=== PATIENT | female | born 2000 | race Caucasian/White ===

== ENCOUNTER 2019-05-06 22:04 | Emergency (ER) | payer OTHER ==
[~2019-05-06] VITALS: Ht 167 cm; Wt 84.6 kg
[2019-05-06 22:23] VITALS: BP_SYST 132; BP_SYST 139; BP_SYST 142; BP_DIAS 87; BP_DIAS 89; BP_DIAS 95
[2019-05-06 22:40] LABS: BASOPHILS % (AUTO) 0 % (0-10); EOSINOPHILS # (AUTO) 0.1 10^3/uL (0.0-0.3); EOSINOPHILS % (AUTO) 1 % (0-10); HEMATOCRIT 40 % (35-52); HEMOGLOBIN 13.1 G/DL (11.5-16.0); LYMPHOCYTES # (AUTO) 2.9 X 10^3 (1.0-4.0); LYMPHOCYTES % (AUTO) 27 % (12-44); MEAN CORPUSCULAR HEMOGLOBIN 30 PG (25-34); MEAN CORPUSCULAR HGB CONC 33 G/DL (32-36); MEAN CORPUSCULAR VOLUME 90 FL (80-99); MONOCYTES # (AUTO) 0.6 X 10^3 (0.0-1.0); MONOCYTES % (AUTO) 6 % (0-12); NEUTROPHILS # (AUTO) 7.2 X 10^3 (1.8-7.8); NEUTROPHILS % (AUTO) 67 % (42-75); PLATELET COUNT 229 10^3/uL (130-400); RED CELL DISTRIBUTION WIDTH 12.9 % (10.0-14.5); WHITE BLOOD COUNT 10.8 10^3/uL (4.3-11.0)
[2019-05-06] MEDS ORDERED: LACTATED RINGERS 1,000 ML IV ONE ×2 (22:41→23:10)
[2019-05-06] MEDS ORDERED: ONDANSETRON 4 MG/2 ML (SDV) Z0FRAN IVP ONE (22:45)
[2019-05-06 22:57] LABS: ALANINE AMINOTRANSFERASE 12 U/L (0-55); ALBUMIN 4.4 GM/DL (3.2-4.5); ALKALINE PHOSPHATASE 76 U/L (40-136); AMYLASE 61 U/L (25-125); BILIRUBIN,TOTAL 0.2 MG/DL (0.1-1.0); BUN/CREATININE RATIO 10; CALCIUM 9.2 MG/DL (8.5-10.1); CARBON DIOXIDE 23 MMOL/L (21-32); CHLORIDE 107 MMOL/L (98-107); CREATININE SERUM 0.79 MG/DL (0.60-1.30); GFR ESTIMATED > 60; GLUCOSE 104 MG/DL (70-105); LIPASE 42 U/L (8-78); MAGNESIUM 1.9 MG/DL (1.6-2.4); POTASSIUM 3.6 MMOL/L (3.6-5.0); SODIUM 143 MMOL/L (135-145); TOTAL PROTEIN 7.4 GM/DL (6.4-8.2)
[2019-05-06 23:22] LABS: BILIRUBIN,URINE NEGATIVE (NEGATIVE); CLARITY,URINE CLEAR; COLOR,URINE YELLOW; GLUCOSE, URINE (UA) NEGATIVE (NEGATIVE); KETONES,URINE NEGATIVE (NEGATIVE); LEUKOCYTE ESTERASE ,URINE NEGATIVE (NEGATIVE); NITRITE,URINE NEGATIVE (NEGATIVE); PROTEIN,URINE NEGATIVE (NEGATIVE)
[2019-05-06] MEDS ORDERED: IOHEXOL 350 MG/ML 100 ML (OMNIPAQUE 350) VIAL IV ONE (23:30)
[2019-05-06] MEDS ORDERED: HOLD METFORMIN - RECEIVED CONTRAST 20 ML VIAL IV SCH (23:30)
[2019-05-06] MEDS ORDERED: NS 100 ML (IVPB) BAG IV ONE (23:30)
[2019-05-06 23:33] LABS: AMPHETAMINE SCREEN, URINE NEGATIVE (NEGATIVE); BARBITURATE SCREEN URINE NEGATIVE (NEGATIVE); BENZODIAZEPINES SCREEN URINE NEGATIVE (NEGATIVE); CANNABINOID SCREEN, URINE NEGATIVE (NEGATIVE); COCAINE SCREEN URINE NEGATIVE (NEGATIVE); METHADONE STAT NEGATIVE (NEGATIVE); METHAMPHETAMINE SCREEN URINE S NEGATIVE (NEGATIVE); OPIATE SCREEN URINE NEGATIVE (NEGATIVE); OXYCODONE STAT NEGATIVE (NEGATIVE); PROPOXYPHENE STAT NEGATIVE (NEGATIVE); TRICYCLIC ANTIDEPRESSANTS SCRE NEGATIVE (NEGATIVE)
[2019-05-06 23:35] LABS: RBC,URINE RARE /HPF
[2019-05-06 23:36] LABS: AMORPHOUS SEDIMENT,UR MOD AMOR URATES /LPF; BACTERIA,URINE TRACE /HPF
--- NOTE | 2019-05-06 23:41 | NUR ---
PT TO CT DEPT VIA W/C
[2019-05-07] MEDS ORDERED: PANT40TA2 PO (01:14)
[2019-05-07] MEDS ORDERED: HYOS0.1283 SL (01:14)
[2019-05-07] MEDS ORDERED: ONDA8TAB13 PO (01:14)
[2019-05-07] MEDS ORDERED: LACT1CAP8 PO (01:14)
--- NOTE | 2019-05-07 01:14 | ED Abdominal Pain ---
General Chief Complaint: Abdominal/GI Problems Stated Complaint: VOMITTING, DIARRHEA, HEADACHE Nursing Triage Note: PT PRESENTS TO ROOM [facility] AMBULATORY C/O LOOSE STOOLS AND NAUSEA THAT HAS BEEN ONGOING FOR THE LAST TWO DAYS, PT STATES SHE BECAME DIZZY INTEMITTENTLY THIS AFTERNOON. PT STATES SHE HAS 2-3 LOOSE STOOLS A DAY. DENIES VOMITING, COUGH OR SOB Sepsis Screen: No Definite Risk Source of Information: Patient History of Present Illness Date Seen by Provider: May 06, 2019 Time Seen by Provider: 22:15 Initial Comments PT ARRIVES VIA POV FROM HOME WITH MALE AND FEMALE FRIENDS IN THE ROOM PT C/O EPIGASTRIC PAIN THAT BEGAN YESTERDAY AFTERNOON HAD DIARRHEA 4-5 TIMES TODAY 2 HOURS AGO, SHE HAD NAUSEA, BUT NO VOMITING NO FEVER/SWEATS/CHILLS STATES SHE FELT A LITTLE LIGHTHEADED THIS MORNING AND HAD A HEADACHE HAS NOT TAKEN ANYTHING FOR HER SYMPTOMS PT HAS CONTINUED TO EAT AND DRINK NORMALLY--STATES SHE HAS BEEN DRINKING WATER, GATORADE AND "MADAN D" JUICE TODAY PT HAS ALSO EATEN MACARONI AND CHEESE, AND OATMEAL TODAY LAST VOID WAS 1 HOUR AGO AND IS VOIDING NORMALLY NO URI SYMPTOMS, NO COUGH, ETC. PT STATES "MY STOMACH HURTS AND IT FEELS LIKE AN EMPTY PIT BUT I'VE BEEN EATING FOOD GOOD" NO SICK CONTACTS NO SUSPICIOUS FOODS--STATES SHE MADE MAC AND CHEESE WITH MILK THAT WAS GETTING READY TO , BUT SMELLED AND TASTED FINE. LMP--1 MONTH AGO. NORMAL. ON OCP'S AND DENIES ANY MISSED DOSES OF PILLS PCP: PSU STUDENT FROM [employer]--PCP AT [facility] Allergies and Home Medications Allergies Coded Allergies: No Known Drug Allergies (Unverified , 05/06/19) Home Medications Hyoscyamine Sulfate 0.125 Mg Tab.subl, 1-2 TAB SL Q4H Prescribed by: KARENA CYR on 05/07/19113 Lactobacillus Acidophilus 1 Each Capsule, 2 EACH PO QID Prescribed by: KARENA CYR on 05/07/19113 Ondansetron 8 Mg Tab.rapdis, 8 MG PO Q6H Prescribed by: KARENA CYR on 05/07/19113 Pantoprazole Sodium 40 Mg Tablet.dr, 40 MG PO DAILY Prescribed by: KARENA CYR on 05/07/19113 Patient Home Medication List Home Medication List Reviewed: Yes Review of Systems Review of Systems Constitutional: see HPI; No chills, No diaphoresis; dizziness; No fever, No malaise, No weakness EENTM: No Symptoms Reported Respiratory: No Symptoms Reported Cardiovascular: No Symptoms Reported Gastrointestinal: See HPI, Abdominal Pain, Diarrhea, Nausea; Denies Poor Appetite, Denies Poor Fluid Intake, Denies Vomiting Genitourinary: No Symptoms Reported Musculoskeletal: no symptoms reported Skin: no symptoms reported Psychiatric/Neurological: See HPI Endocrine: No Symptoms Reported Hematologic/Lymphatic: No Symptoms Reported Past Omwedxl-Qjjsih-Zshyhe Hx Patient Social History Alcohol Use: Regular Use (SEVERAL TIMES A MONTH) Recreational Drug Use: No Smoking Status: Former Smoker (SMOKED < 1 PACK / WEEK--QUIT 2 YEARS AGO) Type Used: Cigarettes Recent Foreign Travel: No Contact w/Someone Who Travel: No Recent Infectious Disease Expo: No Physical Abuse: No Sexual Abuse: No Mistreated: No Fear: No Past Medical History Surgeries: Yes (RIGHT MIDDLE FINGER SURGERY SMALL CHILD--DOES NOT KNOW WHY) Orthopedic Respiratory: No Cardiac: No Neurological: No : No Last Menstrual Period: Apr 05, 2019 Reproductive Disorders: No Genitourinary: No Gastrointestinal: No Musculoskeletal: No Endocrine: No HEENT: No Cancer: No Psychosocial: Yes (EXTENSIVE PSYCH ISSUES--ADHD, DEPRESSION/ANXIETY, PTSD, BIPOLAR) ADD/ADHD, Anxiety, PTSD, Bipolar, Depression Integumentary: No Blood Disorders: No Physical Exam Vital Signs Vital Signs - First Documented 05/06/19 22:09 Temp 37.2 Pulse 89 Resp 20 B/P (MAP) 135/92 (106) Pulse Ox 100 O2 Delivery Room Air Capillary Refill : Less Than 3 Seconds Height/Weight/BMI Height: '" Weight: lbs. oz. kg; 30.00 BMI Method: General Appearance: WD/WN, no apparent distress, other (SMILING, LAUGHING AND TALKING WITH FRIENDS. DOES NOT APPEAR ILL OR TO BE IN ANY DISCOMFORT) HEENT: PERRL/EOMI, pharynx normal Neck: normal inspection Respiratory: normal breath sounds, no respiratory distress, no accessory muscle use Cardiovascular: normal peripheral pulses, regular rate, rhythm, no edema, no JVD, no murmur Gastrointestinal: normal bowel sounds, soft, no organomegaly, no pulsatile mass; No distended, No guarding, No rebound; tenderness (VERY SLIGHT EPIGASTRIC TENDERNESS); No hernia, No mass Extremities: normal inspection, normal capillary refill Back: normal inspection, no CVA tenderness Neurologic/Psychiatric: edi coordinator II-XII nml as tested, no motor/sensory deficits, alert, normal mood/affect, oriented x 3 Skin: normal color, warm/dry; No rash Progress/Results/Core Measures Results/Orders Lab Results Laboratory Tests Test 05/06/19 22:24 05/06/19 23:15 Range/Units White Blood Count 10.8 4.3-11.0 10^3/uL Red Blood Count 4.39 4.35-5.85 10^6/uL Hemoglobin 13.1 11.5-16.0 G/DL Hematocrit 40 35-52 % Mean Corpuscular Volume 90 80-99 FL Mean Corpuscular Hemoglobin 30 25-34 PG Mean Corpuscular Hemoglobin Concent 33 32-36 G/DL Red Cell Distribution Width 12.9 10.0-14.5 % Platelet Count 229 130-400 10^3/uL Mean Platelet Volume 11.0 H 7.4-10.4 FL Neutrophils (%) (Auto) 67 42-75 % Lymphocytes (%) (Auto) 27 12-44 % Monocytes (%) (Auto) 6 0-12 % Eosinophils (%) (Auto) 1 0-10 % Basophils (%) (Auto) 0 0-10 % Neutrophils # (Auto) 7.2 1.8-7.8 X 10^3 Lymphocytes # (Auto) 2.9 1.0-4.0 X 10^3 Monocytes # (Auto) 0.6 0.0-1.0 X 10^3 Eosinophils # (Auto) 0.1 0.0-0.3 10^3/uL Basophils # (Auto) 0.0 0.0-0.1 10^3/uL Sodium Level 143 135-145 MMOL/L Potassium Level 3.6 3.6-5.0 MMOL/L Chloride Level 107 98-107 MMOL/L Carbon Dioxide Level 23 21-32 MMOL/L Anion Gap 13 5-14 MMOL/L Blood Urea Nitrogen 8 7-18 MG/DL Creatinine 0.79 0.60-1.30 MG/DL Estimat Glomerular Filtration Rate > 60 BUN/Creatinine Ratio 10 Glucose Level 104 70-105 MG/DL Calcium Level 9.2 8.5-10.1 MG/DL Corrected Calcium 8.9 8.5-10.1 MG/DL Magnesium Level 1.9 1.6-2.4 MG/DL Total Bilirubin 0.2 0.1-1.0 MG/DL Aspartate Amino Transf (AST/SGOT) 13 5-34 U/L Alanine Aminotransferase (ALT/SGPT) 12 0-55 U/L Alkaline Phosphatase 76 40-136 U/L Total Protein 7.4 6.4-8.2 GM/DL Albumin 4.4 3.2-4.5 GM/DL Amylase Level 61 25-125 U/L Lipase 42 8-78 U/L Serum Test, Qualitative NEGATIVE NEGATIVE Urine Color YELLOW Urine Clarity CLEAR Urine pH 6.0 5-9 Urine Specific Campbell 1.025 H 1.016-1.022 Urine Protein NEGATIVE NEGATIVE Urine Glucose (UA) NEGATIVE NEGATIVE Urine Ketones NEGATIVE NEGATIVE Urine Nitrite NEGATIVE NEGATIVE Urine Bilirubin NEGATIVE NEGATIVE Urine Urobilinogen 0.2 < = 1.0 MG/DL Urine Leukocyte Esterase NEGATIVE NEGATIVE Urine RBC (Auto) 1+ H NEGATIVE Urine RBC RARE /HPF Urine WBC 2-5 /HPF Urine Squamous Epithelial Cells 5-10 /HPF Urine Crystals PRESENT H /LPF Urine Amorphous Sediment MOD SAMINA URATES H /LPF Urine Bacteria TRACE /HPF Urine Casts NONE /LPF Urine Mucus NEGATIVE /LPF Urine Culture Indicated NO Urine Opiates Screen NEGATIVE NEGATIVE Urine Oxycodone Screen NEGATIVE NEGATIVE Urine Methadone Screen NEGATIVE NEGATIVE Urine Propoxyphene Screen NEGATIVE NEGATIVE Urine Barbiturates Screen NEGATIVE NEGATIVE Ur Tricyclic Antidepressants Screen NEGATIVE NEGATIVE Urine Phencyclidine Screen NEGATIVE NEGATIVE Urine Amphetamines Screen NEGATIVE NEGATIVE Urine Methamphetamines Screen NEGATIVE NEGATIVE Urine Benzodiazepines Screen NEGATIVE NEGATIVE Urine Cocaine Screen NEGATIVE NEGATIVE Urine Cannabinoids Screen NEGATIVE NEGATIVE My Orders Orders - KARENA CYR DO Ed Iv/Invasive Line Start (05/06/19 22:12) Urine Bedside (05/06/19 22:12) Orthostatic Vital Signs (Adult (05/06/19 22:12) Amylase (05/06/19 22:12) Cbc With Automated Diff (05/06/19 22:12) Comprehensive Metabolic Panel (05/06/19 22:12) Drug Screen Stat (Urine) (05/06/19 22:12) Lipase (05/06/19 22:12) Magnesium (05/06/19 22:12) Ua Culture If Indicated (05/06/19 22:12) Hcg,Qualitative Serum (05/06/19 22:38) Ondansetron Injection (Zofran Injectio (05/06/19 22:45) Ed Iv/Invasive Line Start (05/06/19 22:41) Lactated Ringers (Lr 1000 Ml Iv Solution (05/06/19 22:41) Ct Abd/Pelv W (Appendicitis) (05/06/19 23:09) Acute Abd Series (05/06/19 23:09) Ed Iv/Invasive Line Start (05/06/19 23:10) Lactated Ringers (Lr 1000 Ml Iv Solution (05/06/19 23:10) Iohexol Injection (Omnipaque 350 Mg/Ml 1 (05/06/19 23:30) Received Contrast (Hold Metformin- Contr (05/06/19 23:30) Ns (Ivpb) (Sodium Chloride 0.9% Ivpb Bag (05/06/19 23:30) Pantoprazole Injection (Protonix Injecti (05/07/19 01:15) Hyoscyamine Sl Tablet (Levsin Sl Tablet) (05/07/19 01:15) Ondansetron Injection (Zofran Injectio (05/07/19 01:15) Medications Given in ED Vital Signs/I&O 05/06/19 05/06/19 22:09 22:23 Temp 37.2 Pulse 89 77 88 104 Resp 20 B/P (MAP) 135/92 (106) 132/95 (107) 142/87 (105) 139/89 (106) Pulse Ox 100 O2 Delivery Room Air 05/07/19 00:00 Intake Total 1000 ml Balance 1000 ml Blood Pressure Mean: 106 POS Progress Progress Note : Progress Note GIVEN FLUIDS, ZOFRAN, PROTONIX AND LEVSIN--ALL SYMPTOMS COMPLETELY RESOLVED AT DISMISSAL PT GAVE A STOOL SAMPLE DURING ER STAY--SENT TO LAB FOR CULTURES/TESTING Diagnostic Imaging Comments ABDOMEN XRAYS--NO ACUTE PROCESS, PENDING RADIOLOGIST REVIEW CT ABDOMEN/PELVIS--NO ACUTE PROCESS, PER [facility] VIA FAX AT 0109 Reviewed: Reviewed by Me Departure Impression Primary Impression: Gastroenteritis Disposition: HOME, SELF-CARE Condition: Improved Departure-Patient Inst. Referrals: NO,LOCAL PHYSICIAN (PCP/Family) Primary Care Physician Patient Instructions: [id number] Add. Discharge Instructions: CLEAR LIQUIDS--WATER, BROTH, JELLO, GATORADE WHEN YOU ARE BETTER, ADD BRATS DIET TO CLEAR LIQUIDS--BANANAS, RICE, APPLESAUCE, TOAST, SALTINES FOLLOW UP WITH OF CHOICE IN 2-3 DAYS IF NO BETTER, RETURN TO ER IF WORSE All discharge instructions reviewed with patient and/or family. Voiced understanding. Scripts Pantoprazole Sodium (Protonix) 40 Mg Tablet.dr 40 MG PO DAILY, #15 TAB Prov: KARENA CYR DO 05/07/19 Ondansetron (Ondansetron Odt) 8 Mg Tab.rapdis 8 MG PO Q6H for Nausea/Vomiting, #10 TAB Prov: KARENA CYR DO 05/07/19 Hyoscyamine Sulfate (Levsin-Sl) 0.125 Mg Tab.subl 1-2 TAB SL Q4H for Abdominal Pain, #15 TAB Prov: KARENA CYR DO 05/07/19 Lactobacillus Acidophilus (Acidophilus) 1 Each Capsule 2 EACH PO QID, #80 CAP Prov: KARENA CYR DO 05/07/19 KARENA CYR DO May 07, 2019 01:14 POS
[2019-05-07] MEDS ORDERED: ONDANSETRON 4 MG/2 ML (SDV) Z0FRAN IVP ONE (01:15)
[2019-05-07] MEDS ORDERED: HYOSCYAMINE 0.125 MG (LEVSIN) TAB PO ONE (01:15)
[2019-05-07] MEDS ORDERED: PANTOPRAZOLE 40 MG (PROTONIX) VIAL IV ONE (01:15)
[2019-05-07 01:31] VITALS: BP 129/92
--- NOTE | 2019-05-07 06:08 | Diagnostic Imaging Report ---
PROCEDURE: CT abdomen and pelvis with contrast, rule out appendicitis. TECHNIQUE: Multiple contiguous axial images were obtained through the abdomen and pelvis after the administration of intravenous contrast. INDICATION: Pain. Liver, gallbladder, bile ducts, spleen, adrenals, pancreas unremarkable. The stomach is mildly distended with ingested material but appear nonfocal. Kidneys unobstructed and normal. There is a normal air-containing appendix. The uterus, adnexa and urinary bladder are unremarkable. There is no diverticulitis. No abscess, hematoma or other fluid collection. No focal inflammatory process. No pneumatosis or free gas. No vascular obstruction. The osseous structures in the lung bases were nonacute. IMPRESSION: Unremarkable abdominal pelvic CT Dictated by: Dictated on workstation # [id number]
--- NOTE | 2019-05-07 07:27 | Diagnostic Imaging Report ---
INDICATION: Abdominal pain, loose stools and nausea. COMPARISON: None. FINDINGS: Acute abdominal series demonstrates normal chest. There is no free air under the diaphragm. Bowel gas pattern is normal. There is no significant constipation. No free air seen. Osseous structures are age-appropriate. IMPRESSION: Negative acute abdominal series. Dictated by: Dictated on workstation # [id number]
== END 2019-05-07 01:34 | disposition home or self-care (01) ==
LOC: ER 22:06
DX: K52.9 Noninfective gastroenteritis and colitis, unspecified (principal); F90.9 Attention-deficit hyperactivity disorder, unspecified type; F43.10 Post-traumatic stress disorder, unspecified; F31.9 Bipolar disorder, unspecified; F41.9 Anxiety disorder, unspecified; Z87.891 Personal history of nicotine dependence
CPT/HCPCS: 36415; 74022; 74177; 80053; 80306; 81000; 82150; 83690; 83735; 84703; 85025; 96361; 96374; 96375; 96376

== ENCOUNTER 2019-05-07 05:45 | Emergency (ER) | payer OTHER ==
[~2019-05-07 05:45] MED LIST: HYOS0.1283 SL; LACT1CAP8 PO; ONDA8TAB13 PO; PANT40TA2 PO
--- NOTE | 2019-05-07 05:55 | NUR ---
Note reymundo in [facility] - 05/07/19 at 0612 by [id number] WENT TO LOBBY TO BRING PT BACK, PT STATES SHE DECIDED SHE WOULD GO HOME AND WAIT UNTIL HER PHARMACY OPENS Addendum: 05/07/19 at 0610 by [id number] Amendment reymundo in [facility] - 05/07/19 at 0612 by [id number] WENT TO LOBBY TO BRING PT BACK, PT STATES SHE DECIDED SHE WOULD GO HOME AND WAIT UNTIL HER PHARMACY OPENS. PT STATES SHE PANICKED WHEN SHE GOT HOME AFTER BEING DISMISSED FROM THIS ED AND HAD A ONE TIME BOUT OF VOMITING. Addendum: 05/07/19 at 0611 by [id number] Amendment undmelba in [facility] - 05/07/19 at 0612 by [id number] WENT TO LOBBY TO BRING PT BACK, PT STATES SHE DECIDED SHE WOULD GO HOME AND WAIT UNTIL HER PHARMACY OPENS. PT STATES SHE PANICKED AFTER BEING DISMISSED FROM THIS ED AND HAD A ONE TIME EPISODE OF VOMITING AT HOME
[2019-05-07] MEDS ORDERED: LACTATED RINGERS 1,000 ML IV ONE (06:10)
[2019-05-07] MEDS ORDERED: ONDANSETRON 4 MG/2 ML (SDV) Z0FRAN IVP ONE (06:15)
== END 2019-05-07 05:55 | disposition left against medical advice (07) ==
LOC: EDUNIT# 05:45 → ER 05:47
DX: R10.9 Unspecified abdominal pain (principal); R11.10 Vomiting, unspecified; R42 Dizziness and giddiness